=== PATIENT | female | born 1970 | race Caucasian/White ===

== ENCOUNTER 2022-06-05 08:34 | Emergency (ER) | payer SELFPAY ==
[~2022-06-05] VITALS: Ht 160 cm; Wt 101.6 kg
[2022-06-05 08:40] VITALS: BP 185/75
--- NOTE | 2022-06-05 08:52 | NUR ---
BIB SELF C/O RIGHT EAR PAIN X 2 WEEKS AND C/O COUGH X 1 WEEK. PMH: HTN, THYROID,ASTHMA
[2022-06-05] MEDS ORDERED: MECL-303 PO (09:40)
[2022-06-05] MEDS ORDERED: COROTSOL RIGHT EAR (09:40)
[2022-06-05] MEDS ORDERED: IBUP-1842 PO (09:40)
== END 2022-06-05 09:43 | disposition home or self-care (01) ==
LOC: MED 08:34
DX: H60.91 Unspecified otitis externa, right ear (principal); R42 Dizziness and giddiness
CPT/HCPCS: 99283

== ENCOUNTER 2023-03-16 12:04 | Inpatient (IN) | payer MEDICAID ==
[~2023-03-16] VITALS: Ht 165.1 cm; Wt 101.6 kg
[~2023-03-16 12:04] MED LIST: COROTSOL RIGHT EAR; IBUP-1842 PO; MECL-303 PO
[2023-03-16 12:30] VITALS: BP 169/71; PULSE 86; RESP 20; TEMP 98.2; O2SAT 94
[2023-03-16] MEDS ORDERED: ALBUTEROL 0.083% 2.5 MG/3 ML NEBU INH ONE ×2 (14:20→15:25)
[2023-03-16] MEDS ORDERED: KETOROLAC 30 MG/ML VIAL IM ONE (14:20)
[2023-03-16] MEDS ORDERED: ACETAMINOPHEN EXTRA STRENGTH 500 MG TAB PO ONE (14:20)
[2023-03-16] MEDS ORDERED: IPRATROPIUM 0.02% 0.5 MG/2.5 ML NEBU INH ONE (14:20)
[2023-03-16] MEDS ORDERED: predniSONE 20 MG TAB PO ONE (14:25)
[2023-03-16 14:30] VITALS: PULSE 78; PULSE 84; RESP 18; O2SAT 90; O2SAT 99
[2023-03-16 15:20] VITALS: O2SAT 95
[2023-03-16 15:35] VITALS: PULSE 84; RESP 18; O2SAT 96
[2023-03-16 16:30] LABS: BASOPHILS % (AUTO) 0.5 % (0.0-2.0); EOSINOPHILS # (AUTO) 0.1 K/uL (0-0.4); HEMOGLOBIN 13.1 g/dL (12.0-16.0); LYMPHOCYTES # (AUTO) 1.9 K/uL (2.5-16.5); LYMPHOCYTES % (AUTO) 35.7 % (20.5-51.1); MEAN CORPUSCULAR HEMOGLOBIN 28 pg (27-31); MEAN CORPUSCULAR HGB CONC 34 g/dL (33-37); MEAN CORPUSCULAR VOLUME 84.1 fL (80-94); MONOCYTES # (AUTO) 0.8 K/uL (0.8-1.0); MONOCYTES % (AUTO) 14.5 % (1.7-9.3); NEUTROPHILS # (AUTO) 2.6 K/uL (1.8-7.7); NEUTROPHILS % (AUTO) 48.3 % (42.2-75.2); PLATELET COUNT (AUTO) 170 K/uL (140-450); RED BLOOD CELL COUNT(AUTO) 4.63 MIL/uL (4.20-5.40); RED CELL DISTRIBUTION WIDTH 14.1 % (11.6-13.7); WHITE BLOOD COUNT (AUTO) 5.4 K/uL (4.8-10.8)
[2023-03-16 16:49] LABS: ALBUMIN 3.5 g/dL (3.4-5.0); ANION GAP 13.6 (8-16); CALCIUM 8.2 mg/dL (8.5-10.1); CARBON DIOXIDE 29.4 mmol/L (21-32); TOTAL BILIRUBIN 0.3 mg/dL (0.0-1.0); TOTAL PROTEIN, SERUM 7.2 g/dL (6.4-8.2)
[2023-03-16] MEDS ORDERED: ACETAMINOPHEN 325 MG TAB PO PRN (19:35)
[2023-03-16] MEDS ORDERED: ZOLPIDEM 5 MG TAB PO PRN (19:35)
[2023-03-16] MEDS ORDERED: HYDROcodone/APAP 5/325 MG 1 TAB TAB PO PRN (19:35)
[2023-03-16] MEDS ORDERED: ONDANSETRON 4 MG/2 ML VIAL IVP PRN (19:35)
[2023-03-16] MEDS ORDERED: LORazepam 1 MG TAB PO PRN (19:35)
[2023-03-16] MEDS ORDERED: ALBUTEROL SULFATE/IPRATROPIU 3 ML SOL IH PRN (19:35)
[2023-03-16 19:40] VITALS: O2SAT 97
[2023-03-16 19:59] LABS: FLU A ANTIGEN negative (NEGATIVE); FLU B ANTIGEN NEGATIVE (NEGATIVE)
[2023-03-16 21:55] VITALS: BP 167/87; PULSE 82; PULSE 93; RESP 20; TEMP 97.9; O2SAT 95; O2SAT 97
[2023-03-16] MEDS ORDERED: POTASSIUM CHLORIDE 10 MEQ TABER PO ONE (23:00)
[2023-03-16] MEDS ORDERED: KCL 20 MEQ IN 100 mL PREMIX 200 ML IV ONE (23:00)
[2023-03-16] MEDS: methylPREDNISolone SS 40 MG/ML VIAL IVP SCH (23:16)
[2023-03-17] VITALS (9 sets, daily range): BP systolic 144–186; BP diastolic 77–92; PULSE 72–85; RESP 17–20; TEMP 96.9–97.9; O2SAT 93–96
[2023-03-17] MEDS ORDERED: POTASSIUM CHLORIDE 10 MEQ TABER PO ONE (00:54)
[2023-03-17] MEDS ORDERED: hydrALAZINE 25 MG TAB PO PRN (01:10)
[2023-03-17] MEDS: amLODIPine 5 MG TAB PO SCH ×2 (02:02→08:16)
[2023-03-17] MEDS: methylPREDNISolone SS 40 MG/ML VIAL IVP SCH ×3 (05:44→20:40)
[2023-03-17] MEDS: DOCUSATE SODIUM 100 MG GELCAP PO SCH (08:16)
[2023-03-17] MEDS: AZITHROMYCIN 250 MG TAB PO SCH (08:17)
[2023-03-17 09:08] LABS: BASOPHILS % (AUTO) 0.2 % (0.0-2.0); HEMATOCRIT 42.3 % (36-48); HEMOGLOBIN 13.8 g/dL (12.0-16.0); LYMPHOCYTES # (AUTO) 0.8 K/uL (2.5-16.5); LYMPHOCYTES % (AUTO) 14.1 % (20.5-51.1); MEAN CORPUSCULAR HEMOGLOBIN 28 pg (27-31); MEAN CORPUSCULAR HGB CONC 33 g/dL (33-37); MEAN CORPUSCULAR VOLUME 85.6 fL (80-94); MONOCYTES # (AUTO) 0.1 K/uL (0.8-1.0); MONOCYTES % (AUTO) 2.5 % (1.7-9.3); NEUTROPHILS # (AUTO) 4.9 K/uL (1.8-7.7); NEUTROPHILS % (AUTO) 83.2 % (42.2-75.2); PLATELET COUNT (AUTO) 201 K/uL (140-450); RED BLOOD CELL COUNT(AUTO) 4.94 MIL/uL (4.20-5.40); RED CELL DISTRIBUTION WIDTH 14.2 % (11.6-13.7); WHITE BLOOD COUNT (AUTO) 5.8 K/uL (4.8-10.8)
[2023-03-17 09:31] LABS: ANION GAP 15.9 (8-16); CALCIUM 8.8 mg/dL (8.5-10.1); CARBON DIOXIDE 27.7 mmol/L (21-32); CREATININE 0.9 mg/dL (0.6-1.3); POTASSIUM 4.6 mmol/L (3.5-5.1)
[2023-03-17] MEDS ORDERED: DEXTROSE 50% 50 ML SYR IVP PRN (10:00)
[2023-03-17] MEDS ORDERED: CLONIDINE HYDROCHLORIDE 0.1 MG TAB PO PRN (11:20)
[2023-03-17] MEDS: INSULIN LISPRO SLIDING SCALE 100 UNITS/ML VIAL SUBQ PRN ×3 (11:35→20:46)
[2023-03-17] MEDS: BLOOD GLUCOSE MONITORING 1 DEV DEV FS SCH ×3 (11:38→20:36)
[2023-03-17 20:02] LABS: BASOPHILS % (AUTO) 0.2 % (0.0-2.0); HEMATOCRIT 40.2 % (36-48); HEMOGLOBIN 13.2 g/dL (12.0-16.0); LYMPHOCYTES % (AUTO) 9.5 % (20.5-51.1); MEAN CORPUSCULAR HEMOGLOBIN 28 pg (27-31); MEAN CORPUSCULAR HGB CONC 33 g/dL (33-37); MEAN CORPUSCULAR VOLUME 85.6 fL (80-94); MONOCYTES # (AUTO) 0.6 K/uL (0.8-1.0); MONOCYTES % (AUTO) 5.9 % (1.7-9.3); NEUTROPHILS % (AUTO) 84.4 % (42.2-75.2); PLATELET COUNT (AUTO) 191 K/uL (140-450); RED CELL DISTRIBUTION WIDTH 13.9 % (11.6-13.7); WHITE BLOOD COUNT (AUTO) 10.6 K/uL (4.8-10.8)
[2023-03-17] MEDS: LOSARTAN 25 MG TAB PO SCH (20:43)
[2023-03-18] VITALS: BP 155/72; PULSE 71; PULSE 73; RESP 18; TEMP 96.8; O2SAT 96
[2023-03-18 04:00] VITALS: BP 158/92; PULSE 71; PULSE 72; RESP 18; TEMP 97; O2SAT 95
[2023-03-18] MEDS: methylPREDNISolone SS 40 MG/ML VIAL IVP SCH ×2 (05:20→13:00)
[2023-03-18] MEDS: INSULIN LISPRO SLIDING SCALE 100 UNITS/ML VIAL SUBQ PRN ×2 (05:44→16:01)
[2023-03-18] MEDS: BLOOD GLUCOSE MONITORING 1 DEV DEV FS SCH ×2 (05:47→11:30)
[2023-03-18 08:00] VITALS: BP 140/83; PULSE 66; PULSE 72; PULSE 85; RESP 19; TEMP 98.6; O2SAT 96
[2023-03-18] MEDS: AZITHROMYCIN 250 MG TAB PO SCH (10:01)
[2023-03-18] MEDS: LOSARTAN 25 MG TAB PO SCH (10:02)
[2023-03-18] MEDS: DOCUSATE SODIUM 100 MG GELCAP PO SCH (10:03)
[2023-03-18] MEDS: amLODIPine 5 MG TAB PO SCH (10:03)
[2023-03-18 12:00] VITALS: BP 143/79; PULSE 70; RESP 19; TEMP 97.3; O2SAT 96
[2023-03-18] MEDS ORDERED: AZIT250T11 PO (16:04)
[2023-03-18] MEDS ORDERED: LOSA-269 PO (16:04)
[2023-03-18] MEDS ORDERED: AMLO-3 PO (16:04)
[2023-03-18] MEDS ORDERED: METH4TAB1 PO (16:04)
[2023-03-18 16:35] VITALS: BP 143/79; PULSE 70; RESP 19; TEMP 97.3
== END 2023-03-18 17:00 | disposition home or self-care (01) | DRG 133 ==
LOC: MED 12:04 → MTU 19:36
PROVIDERS: ADMIT Internal Medicine; ATTEND Internal Medicine
DX: J96.01 Acute respiratory failure with hypoxia (principal); E83.51 Hypocalcemia; J45.901 Unspecified asthma with (acute) exacerbation; E11.65 Type 2 diabetes mellitus with hyperglycemia; E87.6 Hypokalemia; J06.9 Acute upper respiratory infection, unspecified; I10 Essential (primary) hypertension; Z20.822 Contact with and (suspected) exposure to COVID-19; E66.9 Obesity, unspecified; Z68.37 Body mass index [BMI] 37.0-37.9, adult
CPT/HCPCS: 36415; 71045; 80048; 80053; 82948; 83880; 84484; 85025; 87081; 94640; 99285; J1644; J1815; J2920; J3480; J7512; J7613; J7644

== ENCOUNTER 2023-10-14 18:49 | Emergency (ER) | payer MEDICAID ==
[~2023-10-14] VITALS: Ht 152.4 cm; Wt 98.0 kg
[~2023-10-14 18:49] MED LIST changes: +AMLO-3 PO; +AZIT250T11 PO; +LOSA-269 PO; +METH4TAB1 PO
[2023-10-14 19:32] VITALS: BP 157/73; PULSE 82; RESP 20; TEMP 98; O2SAT 95
[2023-10-14 19:58] VITALS: PULSE 78; RESP 26; O2SAT 95
[2023-10-14] MEDS: ALBUTEROL 0.083% 2.5 MG/3 ML NEBU INH ONE (19:58)
[2023-10-14 20:19] VITALS: BP 148/76; PULSE 84; RESP 20; TEMP 98.2; O2SAT 95
[2023-10-14] MEDS ORDERED: PRON INH (23:46)
[2023-10-14] MEDS ORDERED: ALBU0.0912 INH (23:46)
[2023-10-14] MEDS ORDERED: PRED20TA5 PO (23:46)
== END 2023-10-14 23:45 | disposition home or self-care (01) ==
LOC: MED 18:49
DX: J45.901 Unspecified asthma with (acute) exacerbation (principal); E11.9 Type 2 diabetes mellitus without complications; I10 Essential (primary) hypertension; Z79.1 Long term (current) use of non-steroidal anti-inflammatories (NSAID); Z79.2 Long term (current) use of antibiotics; Z79.899 Other long term (current) drug therapy
CPT/HCPCS: 94640; 99283; J7613